=== PATIENT | female | born 1985 | race African-American/Black ===

== ENCOUNTER 2018-03-03 12:19 | Emergency (ER) | payer OTHER ==
[~2018-03-03] VITALS: Ht 154.9 cm; Wt 113.4 kg
[~2018-03-03 12:19] MED LIST: BIRTH CONTROL; MACROBID 100 M100 M1 PO; NORCO 5-325 TA1 EACH PO; PHENTERMINE HCL8 MG PO; PRENATAL PO; PREVACID 30MG C30 M1 PO
[2018-03-03 12:36] LABS: URINE BILIRUBIN NEGATIVE (Negative); URINE BLOOD TRACE (Negative); URINE CLARITY CLEAR; URINE COLOR YELLOW; URINE GLUCOSE-RANDOM* NEGATIVE (Negative); URINE KETONES NEGATIVE (Negative); URINE NITRITE-REFLEX NEGATIVE (Negative); URINE PROTEIN (DIPSTICK) NEGATIVE (Negative); URINE SPECIFIC GRAVITY 1.025 (1.005-1.035); URINE UROBILINOGEN 0.2 E.U./dl (0.2-1.0)
[2018-03-03 12:37] LABS: URINE LEUKOCYTES-REFLEX TRACE (Negative)
[2018-03-03] MEDS ORDERED: JARDIANCE10 MG PO (12:40)
[2018-03-03] MEDS ORDERED: PEPCID20 MG PO (14:38)
[2018-03-03] MEDS ORDERED: IBUPROFEN 600600 M1 PO (14:38)
[2018-03-03] MEDS ORDERED: CARAFATE 1 GM TA1 G1 PO (14:38)
[2018-03-03 14:53] VITALS: BP 116/70
== END 2018-03-03 14:54 | disposition home or self-care (01) ==
LOC: ER 12:19
PROVIDERS: Nurse Practitioner
DX: K21.9 Gastro-esophageal reflux disease without esophagitis (principal); R10.2 Pelvic and perineal pain

== ENCOUNTER 2021-11-15 17:24 | Emergency (ER) | payer OTHER ==
[~2021-11-15 17:24] MED LIST changes: +CARAFATE 1 GM TA1 G1 PO; +IBUPROFEN 600600 M1 PO; +JARDIANCE10 MG PO; +PEPCID20 MG PO
== END 2021-11-15 18:03 | disposition left against medical advice (07) ==
LOC: ER 17:24
DX: O20.9 Hemorrhage in early pregnancy, unspecified (principal); Z3A.10 10 weeks gestation of pregnancy; Z53.21 Procedure and treatment not carried out due to patient leaving prior to being seen by health care provider